=== PATIENT | male | born 1995 | race Caucasian/White ===

== ENCOUNTER 2017-08-14 17:47 | Emergency (ER) | payer OTHER ==
[2017-08-14 17:54] VITALS: BP 150/88; PULSE 85; TEMP 98; BMI 41.5
[2017-08-14] MEDS ORDERED: DIPHTH,PERTUSS(ACELL),TET 0.5 ML DISP.SYRIN IM ONE (18:37)
--- NOTE | 2017-08-14 18:37 | PDOC ---
History of Present Illness - General Chief Complaint: Injury Stated Complaint: LACERATION Time Seen by Provider: 08/14/17 18:03 History Source: Patient Exam Limitations: No Limitations - History of Present Illness Initial Comments: 08/14/17 18:43 22-year-old male presents to the ED status post laceration to the right hand. Patient states was tried to catch an ornament that was made of glass when he cracked his hand causing him to receive a laceration. Patient states unsure of his last tetanus denies any radiation of pain or sensory changes distal of injury. Patient also denies any limited range of motion of the fingers. 08/14/17 19:03 Severity: mild Associated Symptoms: reports: denies symptoms Past History - Travel Traveled outside of the country in the last 30 days: No - Past Medical History Allergies/Adverse Reactions: Allergies Allergy/AdvReac Type Severity Reaction Status Date / Time No Known Allergies Allergy Verified 08/14/17 17:54 COPD: No - Suicide/Smoking/Psychosocial Hx Smoking History: Never smoked Information on smoking cessation initiated: No Hx Alcohol Use: No Drug/Substance Use Hx: No Substance Use Type: None Patient Lives Alone: No Lives with/in: parents Review of Systems - Review of Systems Able to Perform ROS?: Yes Constitutional: No: Symptoms Reported Integumentary: Yes: See HPI Neurological: No: Symptoms reported Hematologic/Lymphatic: No: Symptoms Reported *Physical Exam - Vital Signs Last Vital Signs Temp Pulse Resp BP Pulse Ox 98 F 85 18 150/88 99 08/14/17 17:51 08/14/17 17:51 08/14/17 17:51 08/14/17 17:51 08/14/17 17:51 - Physical Exam General Appearance: Yes: Nourished. No: Apparent Distress Extremity: positive: Normal Capillary Refill, Normal Range of Motion. negative : Normal Inspection (2.6 linear laceration to the web of right first and second digit) Neurologic: positive: Motor Strength 5/5 (full range of right first and second digit) Procedures - Laceration/Wound Repair Right Hand Wound Length: 2.6 to 5.0 cm Wound Explored: clean Wound's Depth, Shape: linear Anesthesia: 1% Lidocaine Amount of Anesthetic (ccs): 2 Suture Size/Type: 5:0 Number of Sutures: 8 Sterile Dressing Applied: Yes Medical Decision Making - Medical Decision Making 08/14/17 18:45 Patient injury to his right hand. Patient had laceration repair done without difficulty. Patient offered tetanus but refused. Patient to return here in 10- 14 days for suture removal. *DC/Admit/Observation/Transfer Diagnosis at time of Disposition: Laceration of right hand Qualifiers: Encounter type: initial encounter Foreign body presence: without foreign body Qualified Code(s): S61.411A - Laceration without foreign body of right hand, initial encounter - Discharge Dispostion Disposition: HOME Condition at time of disposition: Good - Referrals Referrals: Luis Angeles [Primary Care Provider] - - Patient Instructions Printed Discharge Instructions: DI for Laceration Repair -- Complex Additional Instructions: Please return in 10 -14 days for suture removal. Keep area clean and dry. If you notice increase swelling or drainage form area, return to the ED. - Post Discharge Activity
== END 2017-08-14 18:41 | disposition home or self-care (01) ==
LOC: JERFT 17:47
PROC: 3E0234Z Introduction of Serum, Toxoid and Vaccine into Muscle, Percutaneous Approach (ICD-10-PCS; principal; 2017-08-14)
PROC: 0JQJ0ZZ Repair Right Hand Subcutaneous Tissue and Fascia, Open Approach (ICD-10-PCS; 2017-08-14)
DX: S61.411A Laceration without foreign body of right hand, initial encounter (principal); W25.XXXA Contact with sharp glass, initial encounter; Y93.89 Activity, other specified; Y92.038 Other place in apartment as the place of occurrence of the external cause; Y99.8 Other external cause status
CPT/HCPCS: 99281-25

== ENCOUNTER 2024-02-20 13:30 | Emergency (ER) | payer OTHER ==
[2024-02-20 13:48] VITALS: BP 159/84; PULSE 80; RESP 20; TEMP 98; BMI 42.7
[2024-02-20] MEDS ORDERED: LIDOCAINE 4% PATCH TP ONE (14:49)
[2024-02-20] MEDS ORDERED: KETOROLAC TROMETHAMINE 30 MG/1 ML VIAL ONE (14:49)
[2024-02-20] MEDS ORDERED: BACITRACIN ZINC 15 GM TUBE TOPICAL OINTMENT ONE (14:49)
[2024-02-20] MEDS ORDERED: ACETAMINOPHEN 500 MG TABLET (FP) ONE (14:49)
[2024-02-20] MEDS: LIDOCAINE 4% PATCH TP ONE (14:57)
[2024-02-20] MEDS: ACETAMINOPHEN 500 MG TABLET (FP) PO ONE (14:57)
[2024-02-20] MEDS: KETOROLAC TROMETHAMINE 30 MG/1 ML VIAL IM ONE (14:57)
[2024-02-20] MEDS: BACITRACIN ZINC 15 GM TUBE TOPICAL OINTMENT TP ONE (14:58)
[2024-02-20] MEDS ORDERED: LIDOCAINE PATCH REMOVAL MC SCH (22:00)
== END 2024-02-20 15:01 | disposition home or self-care (01) ==
LOC: JERFT 13:30
PROC: 3E0233Z Introduction of Anti-inflammatory into Muscle, Percutaneous Approach (ICD-10-PCS; principal; 2024-02-20)
DX: S50.812A Abrasion of left forearm, initial encounter (principal); M25.512 Pain in left shoulder; V49.40XA Driver injured in collision with unspecified motor vehicles in traffic accident, initial encounter; Y92.410 Unspecified street and highway as the place of occurrence of the external cause
CPT/HCPCS: 99284-25